=== PATIENT | male | born 1985 | race Hispanic/Latino ===

== ENCOUNTER 2016-12-15 02:15 | Emergency (ER) | payer OTHER ==
[2016-12-15 02:44] LABS: #Eosinphils 0.3 thou/uL (0.0-0.7); #Lymphocytes 2.3 thou/uL (1.20-3.40); #Monocytes 0.8 thou/uL (0.11-0.59); #Neutrophils 8.1 thou/uL (1.40-6.50); %Basophils 0.4 % (0.0-1.0); %Eosinophils 2.6 % (0.0-10.0); %Lymphocytes 20.1 % (21.0-51.0); %Monocytes 6.9 % (0.0-10.0); Hematocrit 46.9 % (42.0-52.0); Mean Platelet Volume 7.2 fL (7.4-10.4); Red Blood Cell (RBC) Count 5.03 mill/uL (4.70-6.10); White Blood Cell (WBC) Count 11.5 thou/uL (4.8-10.8)
[2016-12-15 03:07] LABS: ALT (SGPT) 39 U/L (8-55); AST (SGOT) 31 U/L (5-34); Alkaline Phosphatase 56 U/L (40-150); Anion Gap 10 mmol/L (10-20); BUN (Urea Nitrogen) 11 mg/dL (8.9-20.6); Bilirubin, Total 0.5 mg/dL (0.2-1.2); Calc. Creatinine Clearance 0 mL/min (70-130); Calcium 9.4 mg/dL (7.8-10.44); Carbon Dioxide 25 mmol/L (22-29); Chloride 110 mmol/L (98-107); Estimated GFR-MDRD 85; Globulin 3.2 g/dL (2.4-3.5); Protein, Total 7.1 g/dL (6.0-8.3)
[2016-12-15] MEDS ORDERED: Ondansetron HCl/PF 4 MG/2 ML Vial ONE (03:11)
[2016-12-15] MEDS ORDERED: Ketorolac Tromethamine 30 MG/ML VIAL ONE (03:47)
[2016-12-15 04:02] LABS: Bilirubin Negative (Negative); Blood, Urine Large (Negative); Glucose, Urine (Dipstick) Negative (Negative); Ketone, Urine Negative (Negative); Nitrite Negative (Negative); Protein, Urine (Dipstick) Negative (Neg-Trace)
[2016-12-15 04:05] LABS: Bacteria/HPF None Seen HPF (None Seen); Hyaline Casts/LPF 0-3 HYALINE CAST LPF (0-3 Hyaline); Squamous Epithelial None Seen HPF (0-3); WBC/HPF 0-3 HPF (0-3)
--- NOTE | 2016-12-15 09:16 | CT ---
PRELIMINARY REPORT/[facility]/EMERGENCY AFTER HOURS PROCEDURE: EXAM: CT Abdomen and Pelvis Without Intravenous Contrast EXAM DATE/TIME: Exam ordered 12/15/2016 2:52 AM CLINICAL HISTORY: 31 years old, male; Pain; Abdominal pain; Localized; Lower; Prior surgery; Surgery type: Surgical hi story of appendectomy, surgical history of laparotomy; Patient HX: Pt C/O int lower abd pain that started wednesday. Had episode around 2300 tonight where pain was unbearable. States the pain feels lik e "something is squeezing my intestines". Currently pain free. Some nausea but no vomiting. Denies urinary complaints or bm complaints. States also had episode of bleeding from rectum "the oth er day". TECHNIQUE: Axial computed tomography images of the abdomen and pelvis without intravenous contrast. Coronal reformatted images were created and reviewed. COMPARISON: No relevant prior studies available. FINDINGS: Lower thorax: No acute findings. ABDOMEN: Liver: Hepatic steatosis. Gallbladder and bile ducts: Unremarkable. No calcified stones. No ductal dilation. Pancreas: Unremarkable. No ductal dilation. Spleen: Unremarkable. No splenomegaly. Adrenals: Unremarkable. No mass. Kidneys and ureters: 4 mm obstructing stone at the right UVJ causing mild right hydroureter. Stomach and bowel: Unremarkable. No obstruction. No mucosal thickening. Appendix: Normal appendix. PELVIS: Bladder: Unremarkable. No stones. Reproductive: Unremarkable as visualized. ABDOMEN and PELVIS: Intraperitoneal space: Unremarkable. No free air. No significant fluid collection. Bones/joints: No acute fracture. No dislocation. Soft tissues: Unremarkable. Vasculature: Unremarkable. No abdominal aortic aneurysm. Lymph nodes: Unremarkable. No enlarged lymph nodes. IMPRESSION: 4 mm obstructing stone at the right UVJ causing mild right hydroureter. Thank you for allowing us to participate in the care of your patient. Dictated and Authenticated by: Juan David Mckay MD 12/15/2016 3:24 AM Central Time ([place] \\T\\ Alex) FINAL REPORT ABDOMEN CT WITHOUT CONTRAST PELVIC CT WITHOUT CONTRAST: History: Cough, vertebral tenderness, lower abdominal pain. Technique: Abdomen and pelvic CT are performed without contrast. Coronal reformatted images are subm itted for interpretation. FINDINGS: There is mild right sided obstructive uropathy secondary to a 4 mm calculus in the distal right uret er. Punctate nonobstructing calculus in the upper pole of the left and right kidney measuring approx imately 1 cm are noted. This report is in agreement with the preliminary report by [facility] [[email or web address]]. POS: [place]
== END 2016-12-15 03:57 | disposition home or self-care (01) ==
LOC: ERS 02:15
DX: N20.1 Calculus of ureter (principal)
CPT/HCPCS: 74176; 80053; 81003; 81015; 83690; 85025; 96361; 96374; 96375; J1885; J2270; J2405